=== PATIENT | female | born 1995 | race Two or more races ===

== ENCOUNTER 2019-08-03 01:50 | Emergency (ER) | payer SELFPAY ==
[~2019-08-03] VITALS: Ht 167.6 cm; Wt 167.4 kg
[2019-08-03 04:07] VITALS: BP 129/84
[2019-08-03] MEDS ORDERED: IBUPROFEN 600MG TABLET PO ONE (04:15)
== END 2019-08-03 05:50 | disposition home or self-care (01) ==
LOC: ER 04:12
DX: S52.501A Unspecified fracture of the lower end of right radius, initial encounter for closed fracture (principal); W18.30XA Fall on same level, unspecified, initial encounter; Y93.89 Activity, other specified; Y92.89 Other specified places as the place of occurrence of the external cause; Y99.8 Other external cause status
CPT/HCPCS: 29125; 73110; 99283